=== PATIENT | female | born 1935 | race Caucasian/White ===

== ENCOUNTER → 2016-10-25 | Outpatient (CLI) | payer MEDICARE, BC ==
[~2016-10-25] MED LIST: ALEVE220 M1 PO; ASPIRIN EC81 MG PO; CLARITIN10 MG PO; COLACE100 MG PO; COMBIGAN EYE DRO5 ML OPHTH; JANUMET 50-5001 EACH PO; LIPITOR20 M1 PO; LOPRESSOR25 MG PO; NAPROSYN375 MG PO; NORVASC5 MG PO; PREVACID30 MG PO; TRAVATAN Z OPH2.5 ML OPHTH; TRICOR145 MG PO; TYLENOL EXTRA500 MG PO; TYLENOL/COD#31 TAB PO
== END | disposition disaster alternative care site (69) ==
LOC: LNHI 16:17
DX: I10 Essential (primary) hypertension (principal); I50.32 Chronic diastolic (congestive) heart failure; E78.2 Mixed hyperlipidemia; E11.65 Type 2 diabetes mellitus with hyperglycemia